=== PATIENT | male | born 1975 | race Caucasian/White ===

== ENCOUNTER 2016-12-23 15:49 | Emergency (ER) | payer SELFPAY ==
[~2016-12-23] VITALS: Ht 190.5 cm; Wt 79.8 kg
[~2016-12-23 15:49] MED LIST: DICL50TA2 PO; ROBA750T3 PO
[2016-12-23 15:57] VITALS: BP 129/81; PULSE 62; RESP 18; TEMP 97.9; O2SAT 99
--- NOTE | 2016-12-23 16:09 | PD ---
HPI Chief Complaint: Injury Time Seen by Provider: 16:09 Travel History International Travel<30 days: No Contact w/Intl Traveler<30days: No Traveled to known affect area: No History of Present Illness HPI 41-year-old right-hand dominant male presents to the ED for evaluation of right hand pain. Onset after punching a refrigerator and anger just before arrival. Patient endorses pain with attempted range of motion of the hand, mild numbness and fingers 3 through 5. He denies previous injury to the right hand. Patient had a full lunch approximately 1 PM. Denies chronic health problems, takes no daily medications. NKDA. PFSH Past Medical History Medical History: Denies Significant Hx Asthma: Yes Diminished Hearing: No Respiratory: Yes (ASTHMA) Tetanus Vaccination: < 5 Years Influenza Vaccination: Yes Past Surgical History Surgical History: No Previous Surgery Social History Alcohol Use: No Tobacco Use: No Substance Use: No Allergies-Medications (Allergen,Severity, Reaction): Coded Allergies: No Known Allergies (Unverified , 12/23/16) Reported Meds & Prescriptions Reported Meds & Active Scripts Active Lortab (Hydrocodone-Acetaminophen) 5-325 Mg Tab 1 Tab PO Q6H PRN Ibuprofen 800 Mg Tab 800 Mg PO Q8H PRN Review of Systems Except as stated in HPI: all other systems reviewed are Neg Physical Exam Narrative GENERAL: Well-nourished, well-developed white male in no acute distress. SKIN: Warm and dry. Multiple tattoos. HEAD: Normocephalic. EYES: No scleral icterus. No injection or drainage. NECK: Supple, trachea midline. No JVD or lymphadenopathy. CARDIOVASCULAR: Regular rate and rhythm without murmurs, gallops, or rubs. RESPIRATORY: Breath sounds equal bilaterally. No accessory muscle use. GASTROINTESTINAL: Abdomen soft, non-tender, nondistended. MUSCULOSKELETAL: No cyanosis, or edema. FOCUSED RIGHT UPPER EXTREMITY EXAM: 2+ radial pulse. The natural cascade of the fingers is preserved. MP joints of the fourth and fifth fingers depressed as compared to 1 and 2. No snuffbox tenderness. No tenderness to palpation over the wrist bones. Squeeze test of radius and ulna is negative. Strong finger to thumb opposition with second and third fingers. Patient is able to flex and extend digits 1 through 3. Pain elicited with attempted ROM of digits 4 and 5. Sensation intact to light touch distally. Cap refill less than 2 seconds. BACK: Nontender without obvious deformity. No CVA tenderness. Data Data Last Documented VS Vital Signs Date Time Temp Pulse Resp B/P Pulse Ox O2 Delivery O2 Flow Rate FiO2 12/23/16 15:57 97.9 62 18 129/81 99 Orders Acetamin-Hydrocod 325-5 Mg ([place] 5-325 (12/23/16 16:15) Hand, Complete (Snw3upp) (12/23/16 16:12) Splint Or Brace Apply/Monitor (12/23/16 16:56) Mandatory Outpatient Referral (12/23/16 17:10) [facility] Medical Decision Making Medical Screen Exam Complete: Yes Emergency Medical Condition: Yes Differential Diagnosis Boxer's fracture versus dislocation versus contusion versus musculoskeletal pain versus other Narrative Course 41-year-old right-hand dominant male presents to the ED for evaluation of right hand pain. Onset after punching a refrigerator and anger just before arrival. Patient endorses pain with attempted range of motion of the hand, mild numbness and fingers 3 through 5. He denies previous injury to the right hand. Vitals reviewed. Focused right upper extremity exam reveals 2+ radial pulse. The natural cascade of the fingers is preserved. MP joints of the fourth and fifth fingers depressed as compared to 1 and 2. No snuffbox tenderness. No tenderness to palpation over the wrist bones. Squeeze test of radius and ulna is negative. Strong finger to thumb opposition with second and third fingers. Patient is able to flex and extend digits 1 through 3. Pain elicited with attempted ROM of digits 4 and 5. Neurovascularly intact. Patient was administered 5 mg Lortab and ice pack was applied. X-rays reveal a mildly displaced fractures of the base of the fourth and fifth metacarpals. I spoke with Dr. Kendall, on-call hand surgeon. He recommends ulnar gutter splint, follow -up in the office Thursday. I discussed the results of the workup with the patient. Ulnar gutter splint was applied. He was prescribed 100 mg ibuprofen 3 times a day for pain. He was also prescribed a short course of 5 mg Lortab for pain 6 through 10 on the pain scale. Mandatory outpatient consult was placed. The patient is instructed to rest, ice, elevate the extremity, take medications as prescribed, follow-up as discussed. He was cautioned not to remove the splint. He indicated understanding of the instructions and is amenable to plan of care. He is stable and discharged home. Diagnosis Primary Impression: Fracture of fourth metacarpal bone of right hand Qualified Code: S62.314A - Closed displaced fracture of base of fourth metacarpal bone of right hand, initial encounter Additional Impression: Fracture of fifth metacarpal bone of right hand Qualified Code: S62.316A - Closed displaced fracture of base of fifth metacarpal bone of right hand, initial encounter Referrals: Antonino Kendall III, MD Patient Instructions: Boxer Fracture (ED), General Instructions Departure Forms: Tests/Procedures, Work Release Enter return to work date: Dec 29, 2016 Special Instructions: Right hand to remain in the splint until cleared by orthopedist. Additional Instructions: Rest, ice, elevate the extremity. Elevating the extremity will help relieve throbbing pain and swelling. Apply ice no longer than 10-15 minutes per hour a few times a day. 800 mg ibuprofen up to 3 times a day as needed for pain. Lortab for pain 6 or greater on the pain scale. Do not remove the splint! Follow-up with Dr. Kendall tomorrow as discussed. Return to the ED for any urgent or emergent medical condition. Med/Other Pt SpecificInfo: Prescription(s) given Scripts Hydrocodone-Acetaminophen (Lortab)5-325 Mg Tab1 Tab PO Q6H PRN (PAIN SCALE 6 TO 10) #10 TAB Ref 0 Prov:Jimbo Herrera MD 12/23/16 Ibuprofen 800 Mg [id number] Mg PO Q8H PRN (Pain/Inflammation) #30 TAB Ref 0 Prov:Jimbo Herrera MD 12/23/16 Disposition: 01 DISCHARGE HOME Condition: Stable Carolyn Dewitt Dec 23, 2016 16:09
[2016-12-23] MEDS ORDERED: ACETAMINOPHEN/HYDROcodone 325 MG/5 MG TAB PO ONE (16:15)
--- NOTE | 2016-12-23 16:45 | RADHPO ---
EXAM DATE/TIME: 12/23/2016 16:35 [facility] COMPARISON: No previous studies available for comparison. INDICATIONS : Right hand pain after punching a wall this afternoon. MEDICAL HISTORY : None. SURGICAL HISTORY : None. ENCOUNTER: Initial ACUITY: 1 day PAIN SCORE: 4/10 LOCATION: Right hand. FINDINGS: Three view examination of the right hand demonstrates mildly displaced fractures along the bases of t he fourth and fifth metacarpals with more displacement on the fourth metacarpal fracture. Soft tissue swelling. No other fractures. Bony mineralization is normal. CONCLUSION: Fractures of the fourth and fifth metacarpals. Sebastian Duncan MD on December 23, 2016 at 16:42 Board Certified Radiologist. This report was verified electronically.
[2016-12-23] MEDS ORDERED: HYDR-3533 PO (17:07)
[2016-12-23] MEDS ORDERED: IBUP800T23 PO (17:07)
[2016-12-31] MEDS ORDERED: HYDR-3288 PO (11:53)
[2016-12-31] MEDS ORDERED: CEPH-460 PO (11:53)
[2017-01-16] MEDS ORDERED: CIPR-9 PO (10:32)
== END 2016-12-23 17:35 | disposition home or self-care (01) ==
LOC: PHEFT 15:49
DX: S62.314A Displaced fracture of base of fourth metacarpal bone, right hand, initial encounter for closed fracture (principal); S62.316A Displaced fracture of base of fifth metacarpal bone, right hand, initial encounter for closed fracture; R20.0 Anesthesia of skin; Z87.09 Personal history of other diseases of the respiratory system; W22.09XA Striking against other stationary object, initial encounter
CPT/HCPCS: 29125; 73130

== ENCOUNTER → 2016-12-31 | Day surgery (SDC) | payer SELFPAY ==
[~2016-12-31] VITALS: Ht 193 cm; Wt 75.5 kg
[~2016-12-31] MED LIST changes: +ACETAMINOPHEN 1000 MG/100 ML VIAL IV ONE; +ACETAMINOPHEN/HYDROcodone 325 MG/5 MG TAB ONE; +BUPIVACAINE HCL PF 0.5% 30 ML VIAL ONE; +CEPH-460 PO; +CIPR-9 PO; -DICL50TA2 PO; +HYDR-3288 PO; +HYDR-3533 PO; +IBUP800T23 PO; +INSULIN HUMAN REGULAR 1,000 UNITS/10 ML VIAL SQ PRN; +LACTATED RINGER'S 1000 ML IV SCH; +LIDOCAINE HCL 2% PF SOLN 10 ML VIAL ONE; +METOPROLOL TARTRATE 25 MG TAB PO PRN; +MIDAZOLAM HCL 2 MG/2 ML VIAL ONE; +NEOMYCIN/POLYMYXIN 1 ML G.U. IRRIGANT TOP ONE; +ONDANSETRON HCL 4 MG/2 ML VIAL IV PUSH ONE; +PROPOFOL 200 MG/20 ML AMP IV ONE; -ROBA750T3 PO; +SODIUM CHLORID 0.9% 500 ML IV SCH; +ceFAZolin 1,000 MG/NS 100 ML IV SCH
[2016-12-31 08:58] VITALS: BP 120/75; PULSE 71; RESP 20; TEMP 98; O2SAT 98
[2016-12-31 09:13] LABS: AUTOMATED NEUTROPHIL # 2.4 TH/MM3 (1.8-7.7); BASOPHIL # 0.1 TH/MM3 (0-0.2); BASOPHIL % 1.3 % (0.0-2.0); EOSINOPHIL # 0.1 TH/MM3 (0-0.4); EOSINOPHIL % 1.3 % (0.0-4.0); HEMATOCRIT 42.2 % (39.0-51.0); HEMO FLAGS DIFF FINAL; LYMPH % 38.6 % (9.0-44.0); LYMPHOCYTE # 1.8 TH/MM3 (1.0-4.8); MEAN CELL VOLUME 89.4 FL (80.0-100.0); MEAN CORPUSCULAR HGB CONC 34.7 % (32.0-36.0); MONO % 8.1 % (0.0-8.0); NEUT % 50.7 % (16.0-70.0); PLATELET COUNT 214 TH/MM3 (150-450); RED BLOOD COUNT 4.72 MIL/MM3 (4.50-5.90); RED CELL DISTRIBUTION WIDTH 12.4 % (11.6-17.2); WHITE BLOOD COUNT 4.8 TH/MM3 (4.0-11.0)
--- NOTE | 2016-12-31 11:55 | HHI.PR ---
Immediate Post Op Note Procedure Date: Dec 31, 2016 Pre Op Diagnosis: (1) Fracture of fourth metacarpal bone of right hand (2) Fracture of fifth metacarpal bone of right hand Post Op Diagnosis: Surgeon: Antonino Kendall III Forensic Structural Engineer(s): RP Procedure: CRPP right 4th metacarpal with manipulation CRPP right 5th metacarpal with manipulation Use of image intensifier Complications: 0 Specimen(s) removed: 0 Anesthesia: General, Local Drains: None IVF Patient to: PACU Patient Condition: Good Implant/Devices: SEE IMPLANT LOG (if applicable) Antonino Kendall III, MD Dec 31, 2016 11:55
[2016-12-31 13:30] VITALS: BP 128/73; PULSE 77; RESP 16; TEMP 96.1; O2SAT 98
--- NOTE | 2017-01-01 06:56 | MP ---
cc: ANTONINO KENDALL III, M.D. DATE OF OPERATION 12/31/2016 PREOPERATIVE DIAGNOSIS Right fourth and fifth metacarpal fractures. PROCEDURE 1. Closed reduction and percutaneous pinning with manipulation of the right fourth and fifth metacarpals. 2. Use of image intensifier. SURGEON Antonino Kendall III, MD PROCEDURE The patient was brought to the operating room and placed supine on the operating room table. After the correct site and side of the surgery were verified by members of each team in the room multiple times including the patient and myself and after adequate preoperative markings and preoperative written consent were verified by everyone and after adequate preoperative time-out was performed to everyone's satisfaction, the right upper extremity was prepped and draped in the traditional sterile surgical fashion. A mini C-arm was used to identify the site and side of procedure. A 50/50 mixture of 2% plain lidocaine and 0.5% plain Marcaine was infiltrated in the skin and subcutaneous tissues and into the area of the fractures. Using digital manipulation, the fourth and fifth metacarpals were reduced. Using multiple K-wires of varying sizes and at different angles, the fourth and fifth metacarpals were reduced and held in place with near-anatomic reduction. Under fluoroscopic real-time examination there was no distraction of the fractures and the fourth and fifth metacarpals moved as a as units. There was passive range of motion examination. The fingers revealed no mal-angulation or malrotation. The K-wires were all tailored to length, cut outside the skin, bent. Jurgan's balls were applied. The hand and arm were thoroughly cleansed dried. Additional local anesthetic was injected for postoperative pain relief, postoperative pain control and Betadine and Xeroform was applied around the pin sites. The hand was thoroughly cleansed and dried and a well-padded, well molded volar immobilizing splint that was very bulky and protecting the pins as well was made in the usual fashion. Capillary refill was less than 2 seconds in the fingertips at all times. The patient tolerated the procedure well, was awakened from anesthesia and transported to the Post-Anesthesia Care Unit awake in stable condition. Sponge, needle and instrument counts were correct at the end of the case as reported by nurses in the room. MD WARD Canas III/SSB /12:10 PM /6:47 AM
== END | disposition home or self-care (01) ==
LOC: HSDC 08:01
PROVIDERS: ATTEND Orthopaedic Surgery Hand Surgery
DX: S62.306A Unspecified fracture of fifth metacarpal bone, right hand, initial encounter for closed fracture (principal); S62.304A Unspecified fracture of fourth metacarpal bone, right hand, initial encounter for closed fracture; W22.09XA Striking against other stationary object, initial encounter
CPT/HCPCS: 01820; 26608; 76000; 85025; J0131; J2250; J2405; J3010; J7120